=== PATIENT | female | born 1960 | race Caucasian/White ===

== ENCOUNTER 2021-06-05 08:37 | Outpatient (CLI) | payer OTHER, SELFPAY ==
[2021-06-05 13:24] LABS: SARS-CoV-2 Ag Negative (Negative)
== END 2021-06-05 08:38 | disposition home or self-care (01) ==
LOC: CHSLAB 08:39
PROVIDERS: PCP Family Medicine; Visit Provider Family Medicine
DX: Z20.822 Contact with and (suspected) exposure to COVID-19 (principal)
CPT/HCPCS: 87426; C9803

== ENCOUNTER 2021-07-04 10:10 | Outpatient (CLI) | payer OTHER, SELFPAY ==
[2021-07-04 10:33] LABS: SARS-CoV-2 Ag Negative (Negative)
== END 2021-07-04 10:11 | disposition home or self-care (01) ==
LOC: CHSLAB 10:12
PROVIDERS: PCP Family Medicine; Visit Provider Family Medicine
DX: Z20.822 Contact with and (suspected) exposure to COVID-19 (principal)
CPT/HCPCS: 87426; C9803

== ENCOUNTER 2021-11-02 07:05 | Outpatient (CLI) | payer OTHER, SELFPAY ==
[2021-11-02 07:46] LABS: SARS-CoV-2 Ag Negative (Negative)
[2021-11-02 09:08] LABS: SARS-CoV-2 RNA PCR Negative (Negative)
== END 2021-11-02 07:06 | disposition home or self-care (01) ==
LOC: CHSLAB 07:08
PROVIDERS: PCP Family Medicine; Visit Provider Family Medicine
DX: R09.89 Other specified symptoms and signs involving the circulatory and respiratory systems (principal); Z20.822 Contact with and (suspected) exposure to COVID-19
CPT/HCPCS: 87426; C9803; U0003; U0005

== ENCOUNTER 2021-12-20 14:31 | Outpatient (CLI) | payer OTHER, SELFPAY ==
[2021-12-20 15:55] LABS: SARS-CoV-2 Ag Negative (Negative)
== END 2021-12-20 14:32 | disposition home or self-care (01) ==
LOC: CHSLAB 14:33
PROVIDERS: PCP Family Medicine; Visit Provider Family Medicine
DX: J06.9 Acute upper respiratory infection, unspecified (principal); Z20.822 Contact with and (suspected) exposure to COVID-19
CPT/HCPCS: 87426; C9803

== ENCOUNTER 2022-01-25 07:05 | Outpatient (CLI) | payer OTHER, SELFPAY ==
[2022-01-25 08:18] LABS: SARS-CoV-2 Ag Negative (Negative)
== END 2022-01-25 07:06 | disposition home or self-care (01) ==
LOC: CHSLAB 07:07
PROVIDERS: PCP Family Medicine; Visit Provider Family Medicine
DX: Z11.59 Encounter for screening for other viral diseases (principal); Z20.822 Contact with and (suspected) exposure to COVID-19
CPT/HCPCS: 87426; C9803